=== PATIENT | female | born 1935 | race Caucasian/White ===

== ENCOUNTER 2016-09-20 11:02 | Inpatient (IN) | payer MEDICARE ==
[~2016-09-20] VITALS: Ht 170.2 cm; Wt 71.4 kg
[~2016-09-20 11:02] MED LIST: AMOX1TAB64 PO; AMOXICILLIN PO; ATEN50TA41 PO; CALC-138 PO; DIAZ5TAB PO; GLUC1CAP18 PO; HYDR25TA6 PO; LEVO100T5 PO; LEVO88TA4 PO; SIMV10TA3 PO; STOOL SOFTNER PO; TRAM50TA2 PO; VERAPAMIL PO; VITAMIN D PO; WARF4TAB7 PO; WARF6TAB7 PO
[2016-09-20] MEDS ORDERED: VERA80TA2 PO (12:11)
[2016-09-20] MEDS ORDERED: AMOX-291 PO (12:16)
[2016-09-20] MEDS ORDERED: GLUC1500 PO (12:17)
[2016-09-20] MEDS ORDERED: SODIUM CHLORIDE FLUSH 10ML SYR IVF PRN (14:00)
[2016-09-20] MEDS ORDERED: TEMPLATE NON-FORMULARY MED. (Warfarin Sodium** 4 MG) PO SCH (14:30)
[2016-09-20] MEDS ORDERED: ONDANSETRON 2MG/ML, 2ML IVP PRN (14:30)
[2016-09-20] MEDS ORDERED: GUAIFENESIN/DM 200-20MG, 10ML UDC PO PRN (14:30)
[2016-09-20] MEDS ORDERED: ENALAPRILAT 1.25 MG/ML, 2ML IVPush PRN (14:30)
[2016-09-20] MEDS ORDERED: ACETAMINOPHEN 325 MG TABLET PO PRN (14:30)
[2016-09-20] MEDS ORDERED: TEMPLATE NON-FORMULARY MED. (Warfarin Sodium** 2 MG) PO SCH (14:30)
[2016-09-20] MEDS ORDERED: DILTIAZEM 5 MG/ML, 5ML ONE ×2 (14:56→15:42)
[2016-09-20] MEDS ORDERED: DILTIAZEM 5 MG/ML, 5ML IVPush ONE ×3 (15:00→16:00)
[2016-09-20] MEDS ORDERED: OMNIPAQUE 350 MG/ML, 100ML BOTTLE ONE (15:23)
[2016-09-20] MEDS ORDERED: LORazepam 2 MG/ML, 1ML ONE (16:10)
[2016-09-20] MEDS ORDERED: LORazepam 2 MG/ML, 1ML IVPush ONE (16:30)
[2016-09-20 17:42] VITALS: BP 154/83
[2016-09-20] MEDS: PLEASE ENTER HEIGHT AND WEIGHT MC SCH ×2 (18:04→22:57)
[2016-09-20] MEDS: SODIUM CHLORIDE 0.9% 1,000 ML IV SCH (18:24)
[2016-09-20] MEDS ORDERED: LORazepam 2 MG/ML, 1ML IV PRN (18:30)
[2016-09-20] MEDS ORDERED: WARFARIN 2 MG TABLET PO-COUM ONE (19:00)
[2016-09-20 20:05] VITALS: BP 95/61
[2016-09-20] MEDS: AMOXICILLIN 500 MG CAPSULE PO SCH (21:14)
[2016-09-20] MEDS: FAMOTIDINE 20 MG TABLET PO SCH (21:14)
[2016-09-20] MEDS: ENOXAPARIN 60 MG/0.6 ML SQ SCH (21:14)
[2016-09-21 02:20] VITALS: BP 103/68
[2016-09-21] MEDS: SODIUM CHLORIDE 0.9% 1,000 ML IV SCH ×2 (04:51→14:02)
[2016-09-21] MEDS: PLEASE ENTER HEIGHT AND WEIGHT MC SCH ×2 (04:52→15:00)
[2016-09-21 05:33] LABS: BLOOD UREA NITROGEN 25 mg/dL (7-18)
[2016-09-21 07:11] VITALS: BP 101/61
[2016-09-21] MEDS: AMOXICILLIN 500 MG CAPSULE PO SCH ×2 (08:03→22:24)
[2016-09-21] MEDS: ENOXAPARIN 60 MG/0.6 ML SQ SCH ×2 (08:03→22:24)
[2016-09-21] MEDS: FAMOTIDINE 20 MG TABLET PO SCH ×2 (08:04→22:24)
[2016-09-21] MEDS: VERAPAMIL ER 240MG TABLET.ER PO SCH (08:05)
[2016-09-21] MEDS: SENNA/DOCUSATE TABLET PO SCH (08:10)
[2016-09-21] MEDS: DOCUSATE 100 MG CAPSULE PO SCH (08:11)
[2016-09-21] MEDS ORDERED: VERAPAMIL 80MG TABLET PO SCH (09:00)
[2016-09-21] MEDS ORDERED: LEVOTHYROXINE 88 MCG TABLET PO SCH (09:00)
[2016-09-21 13:42] VITALS: BP 95/60
[2016-09-21] MEDS ORDERED: WARFARIN 5 MG TABLET PO-COUM ONE (18:00)
[2016-09-21 19:12] VITALS: BP 100/69
[2016-09-22] MEDS: SODIUM CHLORIDE 0.9% 1,000 ML IV SCH ×2 (01:00→09:02)
[2016-09-22 01:26] VITALS: BP 115/70
[2016-09-22 05:42] LABS: BLOOD UREA NITROGEN 24 mg/dL (7-18)
[2016-09-22] MEDS ORDERED: LEVOTHYROXINE 50 MCG TABLET PO SCH (06:00)
[2016-09-22 07:11] VITALS: BP 128/77
[2016-09-22] MEDS: ENOXAPARIN 60 MG/0.6 ML SQ SCH ×2 (08:58→17:19)
[2016-09-22] MEDS: AMOXICILLIN 500 MG CAPSULE PO SCH (08:59)
[2016-09-22] MEDS: SENNA/DOCUSATE TABLET PO SCH (08:59)
[2016-09-22] MEDS: DOCUSATE 100 MG CAPSULE PO SCH (08:59)
[2016-09-22] MEDS: VERAPAMIL ER 240MG TABLET.ER PO SCH (08:59)
[2016-09-22] MEDS: FAMOTIDINE 20 MG TABLET PO SCH (08:59)
[2016-09-22] MEDS ORDERED: LEVO50TA PO (11:36)
[2016-09-22 15:15] VITALS: BP 115/70
[2016-09-22] MEDS ORDERED: WARFARIN 5 MG TABLET PO-COUM ONE (18:00)
== END 2016-09-22 17:37 | disposition home or self-care (01) | DRG 69 ==
LOC: ED 13:55 → EDIP 13:56 → ED 14:20 → 5SO 17:29
PROVIDERS: ADMIT Internal Medicine; ATTEND Internal Medicine
DX: I67.82 Cerebral ischemia (principal); D68.59 Other primary thrombophilia; I48.91 Unspecified atrial fibrillation; E05.90 Thyrotoxicosis, unspecified without thyrotoxic crisis or storm; G43.109 Migraine with aura, not intractable, without status migrainosus; E03.9 Hypothyroidism, unspecified; I10 Essential (primary) hypertension; I34.1 Nonrheumatic mitral (valve) prolapse; Z96.652 Presence of left artificial knee joint; I48.0 Paroxysmal atrial fibrillation; M19.90 Unspecified osteoarthritis, unspecified site; Z79.01 Long term (current) use of anticoagulants; Z82.3 Family history of stroke; Z88.6 Allergy status to analgesic agent; Z88.5 Allergy status to narcotic agent; Z88.8 Allergy status to other drugs, medicaments and biological substances; Z91.048 Other nonmedicinal substance allergy status; Z82.49 Family history of ischemic heart disease and other diseases of the circulatory system; Z84.89 Family history of other specified conditions
CPT/HCPCS: 36415; 70450; 70496; 70498; 70553; 80047; 80048; 80061; 82962; 83036; 84443; 85025; 85610; 85730; 93005; 93306; 96374; 96375; 96376; J1650; Q9967; J2060; J7030

== ENCOUNTER 2016-09-23 13:54 | Inpatient (IN) | payer MEDICARE ==
[~2016-09-23] VITALS: Ht 170.2 cm; Wt 69.2 kg
[~2016-09-23 13:54] MED LIST changes: +AMOX-291 PO; +GLUC1500 PO; +LEVO50TA PO; +VERA80TA2 PO
[2016-09-23] MEDS ORDERED: HYDROmorphone 1 MG/ML, 1ML IM ONE ×2 (15:00→16:30)
[2016-09-23] MEDS ORDERED: ONDANSETRON ODT 4 MG PO ONE ×2 (15:00→16:30)
[2016-09-23] MEDS ORDERED: ONDANSETRON ODT 4 MG ONE ×2 (15:18→16:31)
[2016-09-23] MEDS ORDERED: HYDROmorphone 1 MG/ML, 1ML ONE ×3 (15:18→18:35)
[2016-09-23 15:52] LABS: BLOOD UREA NITROGEN 19 mg/dL (7-18)
[2016-09-23] MEDS ORDERED: LORazepam 2 MG/ML, 1ML ONE (17:14)
[2016-09-23] MEDS ORDERED: LORazepam 2 MG/ML, 1ML IM ONE (17:30)
[2016-09-23] MEDS ORDERED: SODIUM CHLORIDE FLUSH 10ML SYR IVF ONE (18:30)
[2016-09-23] MEDS ORDERED: GABAPENTIN 300 MG CAPSULE PO ONE (19:00)
[2016-09-23] MEDS ORDERED: HYDROmorphone 1 MG/ML, 1ML IVPush PRN (19:00)
[2016-09-23] MEDS ORDERED: LABETALOL 5MG/ML, 20ML IV PRN (20:00)
[2016-09-23] MEDS ORDERED: DOCUSATE 100 MG CAPSULE PO PRN (20:00)
[2016-09-23] MEDS ORDERED: TRAZODONE 50MG TABLET PO PRN (20:00)
[2016-09-23] MEDS ORDERED: BISACODYL 10 MG SUPP PR PRN (20:00)
[2016-09-23] MEDS ORDERED: ONDANSETRON 2MG/ML, 2ML IVP PRN (20:00)
[2016-09-23] MEDS ORDERED: TEMPLATE NON-FORMULARY MED. (Glucosamine Hcl** 1,500 MG) PO SCH (21:00)
[2016-09-23] MEDS: ATORVASTATIN 40 MG TABLET PO SCH (21:00)
[2016-09-23 22:22] VITALS: BP 169/79
[2016-09-23] MEDS: SODIUM CHLORIDE 0.9% 1,000 ML IV SCH (22:54)
[2016-09-24 02:50] VITALS: BP 121/76
[2016-09-24] MEDS: LEVOTHYROXINE 50 MCG TABLET PO SCH (05:15)
[2016-09-24] MEDS: KETOROLAC 30 MG/1 ML IVPush PRN ×3 (05:31→17:42)
[2016-09-24 07:45] VITALS: BP 153/77
[2016-09-24] MEDS: SODIUM CHLORIDE 0.9% 1,000 ML IV SCH ×2 (09:00→18:27)
[2016-09-24] MEDS: HYDROCHLOROTHIAZIDE 25 MG TABLET PO SCH (10:18)
[2016-09-24] MEDS: VERAPAMIL ER 240MG TABLET.ER PO SCH (10:18)
[2016-09-24 10:19] VITALS: BP 147/69
[2016-09-24] MEDS: CALCIUM/VITAMIN D3 250-125 TABLET PO SCH (11:25)
[2016-09-24 12:28] VITALS: BP 150/81
[2016-09-24] MEDS: AMOXICILLIN 500 MG CAPSULE PO SCH ×2 (14:44→21:52)
[2016-09-24] MEDS: POLYETHYLENE GLYCOL 17 GM PACKET PO PRN (15:29)
[2016-09-24 20:23] VITALS: BP 133/58
[2016-09-24] MEDS: ATORVASTATIN 40 MG TABLET PO SCH (21:00)
[2016-09-25] MEDS: KETOROLAC 30 MG/1 ML IVPush PRN ×3 (02:03→14:06)
[2016-09-25 02:47] VITALS: BP 166/72
[2016-09-25] MEDS: LEVOTHYROXINE 50 MCG TABLET PO SCH (05:28)
[2016-09-25] MEDS: SODIUM CHLORIDE 0.9% 1,000 ML IV SCH ×2 (05:28→14:06)
[2016-09-25 05:57] LABS: BLOOD UREA NITROGEN 24 mg/dL (7-18)
[2016-09-25 07:53] VITALS: BP 151/77
[2016-09-25] MEDS ORDERED: MORPHINE SULFATE 4 MG/ML, 1ML IVPush ONE (10:00)
[2016-09-25] MEDS ORDERED: MORPHINE SULFATE 4 MG/ML, 1ML ONE (10:03)
[2016-09-25] MEDS: HYDROCHLOROTHIAZIDE 25 MG TABLET PO SCH (10:08)
[2016-09-25] MEDS: AMOXICILLIN 500 MG CAPSULE PO SCH ×2 (10:08→20:23)
[2016-09-25] MEDS: VERAPAMIL ER 240MG TABLET.ER PO SCH (10:08)
[2016-09-25 14:28] VITALS: BP 159/72
[2016-09-25] MEDS ORDERED: SODIUM BICARBONATE 4.2%, 5ML ONE (14:51)
[2016-09-25] MEDS ORDERED: LIDOCAINE 1%, 20ML ONE (14:51)
[2016-09-25] MEDS: CALCIUM/VITAMIN D3 250-125 TABLET PO SCH (16:05)
[2016-09-25] MEDS: MORPHINE SULFATE 4 MG/ML, 1ML IVPush PRN ×2 (16:05→22:16)
[2016-09-25 19:38] VITALS: BP 126/64
[2016-09-25] MEDS: ATORVASTATIN 40 MG TABLET PO SCH (20:23)
[2016-09-26] MEDS: SODIUM CHLORIDE 0.9% 1,000 ML IV SCH ×2 (00:14→08:52)
[2016-09-26 01:39] VITALS: BP 122/61
[2016-09-26 05:11] LABS: BLOOD UREA NITROGEN 20 mg/dL (7-18)
[2016-09-26 07:46] VITALS: BP 136/77
[2016-09-26] MEDS: CALCIUM/VITAMIN D3 250-125 TABLET PO SCH (07:56)
[2016-09-26] MEDS: HYDROCHLOROTHIAZIDE 25 MG TABLET PO SCH (07:56)
[2016-09-26] MEDS: AMOXICILLIN 500 MG CAPSULE PO SCH ×2 (07:57→21:01)
[2016-09-26] MEDS: LEVOTHYROXINE 50 MCG TABLET PO SCH (07:57)
[2016-09-26] MEDS: VERAPAMIL ER 240MG TABLET.ER PO SCH (07:57)
[2016-09-26] MEDS: POLYETHYLENE GLYCOL 17 GM PACKET PO PRN (08:01)
[2016-09-26] MEDS: KETOROLAC 30 MG/1 ML IVPush PRN ×2 (08:52→19:19)
[2016-09-26 15:14] VITALS: BP 121/73
[2016-09-26 19:08] VITALS: BP 157/84
[2016-09-26] MEDS: ATORVASTATIN 40 MG TABLET PO SCH (21:00)
[2016-09-27 01:22] VITALS: BP 110/57
[2016-09-27] MEDS: KETOROLAC 30 MG/1 ML IVPush PRN (03:11)
[2016-09-27] MEDS: LEVOTHYROXINE 50 MCG TABLET PO SCH (05:19)
[2016-09-27 07:27] VITALS: BP 115/69
[2016-09-27] MEDS: VERAPAMIL ER 240MG TABLET.ER PO SCH (08:27)
[2016-09-27] MEDS: POLYETHYLENE GLYCOL 17 GM PACKET PO PRN (08:27)
[2016-09-27] MEDS: HYDROCHLOROTHIAZIDE 25 MG TABLET PO SCH (08:27)
[2016-09-27] MEDS: CALCIUM/VITAMIN D3 250-125 TABLET PO SCH (08:27)
[2016-09-27] MEDS: AMOXICILLIN 500 MG CAPSULE PO SCH ×2 (08:27→20:53)
[2016-09-27] MEDS ORDERED: ONDANSETRON ODT 4 MG PO PRN (10:00)
[2016-09-27] MEDS ORDERED: KETOROLAC 30 MG/1 ML IM PRN (10:00)
[2016-09-27 14:48] VITALS: BP 101/60
[2016-09-27 19:29] VITALS: BP 112/68
[2016-09-27] MEDS: ATORVASTATIN 40 MG TABLET PO SCH (20:53)
[2016-09-28 01:21] VITALS: BP 125/69
[2016-09-28] MEDS: LEVOTHYROXINE 50 MCG TABLET PO SCH (05:10)
[2016-09-28 07:52] VITALS: BP 105/72
[2016-09-28] MEDS: HYDROCHLOROTHIAZIDE 25 MG TABLET PO SCH (09:00)
[2016-09-28] MEDS: AMOXICILLIN 500 MG CAPSULE PO SCH (09:00)
[2016-09-28] MEDS: VERAPAMIL ER 240MG TABLET.ER PO SCH (09:00)
[2016-09-28] MEDS: POLYETHYLENE GLYCOL 17 GM PACKET PO PRN (09:00)
[2016-09-28] MEDS ORDERED: ATOR40TA78 PO (10:48)
== END 2016-09-28 15:05 | disposition home health service (06) | DRG 605 ==
LOC: ED 18:53 → EDIP 19:49 → 3NW 21:25 → OBSVTOIN 09-24 14:11
PROVIDERS: ADMIT Internal Medicine; ATTEND Internal Medicine
DX: S50.11XA Contusion of right forearm, initial encounter (principal); D68.69 Other thrombophilia; N17.9 Acute kidney failure, unspecified; E03.9 Hypothyroidism, unspecified; E88.09 Other disorders of plasma-protein metabolism, not elsewhere classified; I12.9 Hypertensive chronic kidney disease with stage 1 through stage 4 chronic kidney disease, or unspecified chronic kidney disease; M19.90 Unspecified osteoarthritis, unspecified site; N18.3 Chronic kidney disease, stage 3 (moderate); Z96.642 Presence of left artificial hip joint; X58.XXXA Exposure to other specified factors, initial encounter; Z96.652 Presence of left artificial knee joint; I48.0 Paroxysmal atrial fibrillation; Z90.710 Acquired absence of both cervix and uterus; Z88.1 Allergy status to other antibiotic agents; Z88.5 Allergy status to narcotic agent; Z88.6 Allergy status to analgesic agent; Z88.8 Allergy status to other drugs, medicaments and biological substances; Y93.89 Activity, other specified; Y92.89 Other specified places as the place of occurrence of the external cause; Z82.3 Family history of stroke; Z86.73 Personal history of transient ischemic attack (TIA), and cerebral infarction without residual deficits; Z95.2 Presence of prosthetic heart valve; Y99.8 Other external cause status; Z98.51 Tubal ligation status; T45.515A Adverse effect of anticoagulants, initial encounter
CPT/HCPCS: 10160; 36415; 76942; 80048; 82040; 85025; 85610; 85730; 96372; 96374; 96375; G0378; J1170; J1885; J2405; J3490; Q0162; J2060; J7030

== ENCOUNTER 2017-04-06 13:10 | Inpatient (IN) | payer MEDICARE ==
[~2017-04-06] VITALS: Ht 170.2 cm; Wt 64.2 kg
[~2017-04-06 13:10] MED LIST changes: +ATOR40TA78 PO
[2017-04-06 13:40] LABS: HEMATOCRIT 42.3 % (34.6-47.8); HEMOGLOBIN 14.3 g/dL (11.7-16.4); WHITE BLOOD COUNT 6.7 x10^3/uL (3.4-10)
[2017-04-06] MEDS ORDERED: FENTANYL PF 100 MCG/2ML IV ONE (14:00)
[2017-04-06] MEDS ORDERED: CLOPIDOGREL 75 MG TABLET PO ONE (15:00)
[2017-04-06] MEDS ORDERED: ALTEPLASE 1 MG/ML ONE (15:19)
[2017-04-06] MEDS ORDERED: ALTEPLASE IV ONE ×2 (15:30)
[2017-04-06] MEDS ORDERED: LEVO88TA2 PO (16:06)
[2017-04-06] MEDS ORDERED: verapamil PO (16:06)
[2017-04-06] MEDS ORDERED: miralax PO (16:06)
[2017-04-06] MEDS ORDERED: glucosamine PO (16:06)
[2017-04-06] MEDS ORDERED: vitamin D PO (16:06)
[2017-04-06] MEDS ORDERED: calcium PO (16:06)
[2017-04-06] MEDS ORDERED: ONDANSETRON 2MG/ML, 2ML ONE (16:08)
[2017-04-06] MEDS ORDERED: OMNIPAQUE 350 MG/ML, 100ML BOTTLE ONE (16:25)
[2017-04-06] MEDS ORDERED: ONDANSETRON 2MG/ML, 2ML IVPush PRN (16:30)
[2017-04-06] MEDS ORDERED: LABETALOL 5MG/ML, 20ML IVPush PRN (16:30)
[2017-04-06] MEDS ORDERED: POLYETHYLENE GLYCOL 17 GM PACKET PO PRN (16:30)
[2017-04-06] MEDS: NS + 20MEQ KCL 1,000 ML IV SCH (17:30)
[2017-04-06] MEDS: ACETAMINOPHEN 325 MG TABLET PO PRN (20:16)
[2017-04-07 04:00] VITALS: BP 120/50
[2017-04-07] MEDS: LEVOTHYROXINE 50 MCG TABLET PO SCH (05:08)
[2017-04-07] MEDS: NS + 20MEQ KCL 1,000 ML IV SCH (05:08)
[2017-04-07 08:52] LABS: ASPARTATE AMINO TRANSFERASE 17 U/L (15-37); BLOOD UREA NITROGEN 22 mg/dL (7-18)
[2017-04-07] MEDS: SENNA/DOCUSATE TABLET PO SCH (09:00)
[2017-04-07 09:01] LABS: HEMATOCRIT 36.9 % (34.6-47.8); HEMOGLOBIN 12.6 g/dL (11.7-16.4); WHITE BLOOD COUNT 5.9 x10^3/uL (3.4-10)
[2017-04-07] MEDS ORDERED: GADOBUTROL 7.5 MMOL/7.5 ML PFS ONE (10:55)
[2017-04-07 15:57] VITALS: BP 123/71
[2017-04-07 20:00] VITALS: BP 120/70
[2017-04-08 01:38] VITALS: BP 95/58
[2017-04-08] MEDS: LEVOTHYROXINE 50 MCG TABLET PO SCH (05:28)
[2017-04-08] MEDS: ACETAMINOPHEN 325 MG TABLET PO PRN (07:56)
[2017-04-08 08:26] VITALS: BP 128/77
[2017-04-08] MEDS: SENNA/DOCUSATE TABLET PO SCH (09:00)
[2017-04-08 12:04] VITALS: BP 125/68
[2017-04-08] MEDS ORDERED: CLOP75TA52 PO (12:56)
== END 2017-04-08 15:56 | disposition home or self-care (01) | DRG 61 ==
LOC: ED 16:01 → EDIP 16:02 → ED 16:13 → CCU 17:02 → 4WST 04-07 15:50 → DCLOUNGE 04-08 15:29
PROVIDERS: ADMIT Internal Medicine; ATTEND Internal Medicine
DX: I63.9 Cerebral infarction, unspecified (principal); E43 Unspecified severe protein-calorie malnutrition; I48.91 Unspecified atrial fibrillation; I34.1 Nonrheumatic mitral (valve) prolapse; I44.4 Left anterior fascicular block; E03.9 Hypothyroidism, unspecified; E78.5 Hyperlipidemia, unspecified; E87.6 Hypokalemia; R47.01 Aphasia; I10 Essential (primary) hypertension; Z88.6 Allergy status to analgesic agent; Z88.8 Allergy status to other drugs, medicaments and biological substances; M19.90 Unspecified osteoarthritis, unspecified site; Z82.3 Family history of stroke; Z82.49 Family history of ischemic heart disease and other diseases of the circulatory system; Z98.51 Tubal ligation status; Z90.710 Acquired absence of both cervix and uterus
CPT/HCPCS: 36415; 51702; 70450; 70496; 70498; 70553; 80047; 80053; 82962; 85025; 85610; 85730; 87081; 93005; 93306; 96374; A9585; J2405; J2997; J3480; Q9967; 92523-GN

== ENCOUNTER 2018-01-18 09:44 | Emergency (ER) | payer MEDICARE ==
[~2018-01-18] VITALS: Ht 170.2 cm; Wt 62.3 kg
[~2018-01-18 09:44] MED LIST changes: +CLOP75TA52 PO; -GLUC1500 PO; +GLUC15006 PO; +LEVO88TA2 PO; +WARF4TAB65 PO; -WARF4TAB7 PO; +WARF6TAB47 PO; -WARF6TAB7 PO; +calcium PO; +glucosamine PO; +miralax PO; +verapamil PO; +vitamin D PO
[2018-01-18] MEDS ORDERED: SODIUM CHLORIDE 0.9% 1,000ML IVBOLUS ONE (10:30)
[2018-01-18] MEDS ORDERED: SODIUM CHLORIDE FLUSH 10ML SYR IVF ONE (10:30)
[2018-01-18 10:41] LABS: BASOPHILS # (AUTO) 0.02 x10^3/uL (0-0.1); BASOPHILS % (AUTO) 1 % (0-1); EOSINOPHILS # (AUTO) 0.08 x10^3/uL (0-0.4); EOSINOPHILS % (AUTO) 2 % (1-7); LYMPHOCYTES # (AUTO) 0.99 x10^3/uL (1-3.4); LYMPHOCYTES % (AUTO) 26 % (22-44); MD NO; MEAN CORPUSCULAR HEMOGLOBIN 32.3 pg (27.0-34.8); MEAN CORPUSCULAR VOLUME 94.9 fL (80-100); MEAN PLATELET VOLUME 7.3 fL (7.4-10.4); MONOCYTES # (AUTO) 0.31 x10^3/uL (0.2-0.8); MONOCYTES % (AUTO) 8 % (2-9); NEUTROPHILS # (AUTO) 2.35 x10^3/uL (1.8-6.8); NEUTROPHILS % (AUTO) 63 % (42-75); PLATELET COUNT 342 x10^3/uL (130-400); RED BLOOD COUNT 3.99 x10^6/uL (3.82-5.3); RED CELL DISTRIBUTION WIDTH 12.9 % (9.6-15.2)
[2018-01-18 10:52] LABS: INTERNATIONAL NORMALIZED RATIO 1.12 (0.93-1.1); PROTHROMBIN TIME 11.5 Seconds (9.6-11.5)
[2018-01-18 10:54] LABS: ALANINE AMINOTRANSFERASE 25 U/L (12-78); ANION GAP 9 mmol/L (5-15); CALCIUM 9.3 mg/dL (8.5-10.1); CHLORIDE 107 mmol/L (98-107); CREATININE 1.35 mg/dL (0.55-1.02)
[2018-01-18 10:56] LABS: ALKALINE PHOSPHATASE 84 U/L (45-117); BILIRUBIN,TOTAL 0.6 mg/dL (0.2-1.0); TOTAL PROTEIN 7.1 g/dL (6.4-8.2)
[2018-01-18] MEDS ORDERED: LEVO50TA5 PO (11:55)
[2018-01-18] MEDS ORDERED: AMOX-291 PO (11:55)
[2018-01-18] MEDS ORDERED: RIVA20TA PO (11:55)
[2018-01-18] MEDS ORDERED: OMNIPAQUE 350 MG/ML, 100ML BOTTLE ONE (12:19)
[2018-01-18 13:19] LABS: MICROSCOPIC AUTO
[2018-01-18 13:21] LABS: CULTURE INDICATED? NO
[2018-01-18 13:30] VITALS: BP 150/67
== END 2018-01-18 14:10 | disposition home or self-care (01) ==
LOC: ED 11:13
DX: K92.1 Melena (principal); K59.00 Constipation, unspecified; Z79.01 Long term (current) use of anticoagulants; I10 Essential (primary) hypertension; E78.5 Hyperlipidemia, unspecified; I48.91 Unspecified atrial fibrillation; I34.1 Nonrheumatic mitral (valve) prolapse; Z86.73 Personal history of transient ischemic attack (TIA), and cerebral infarction without residual deficits
CPT/HCPCS: 36415; 74177; 80053; 81001; 83605; 85025; 85610; 85730; 86850; 86900; 93005; 99285; J7030; Q9967

== ENCOUNTER → 2019-05-10 | Outpatient (CLI) | payer MEDICARE ==
[~2019-05-10] MED LIST changes: +LEVO50TA5 PO; +RIVA20TA PO
== END | disposition home or self-care (01) ==
LOC: CFH 10:52
PROVIDERS: ATTEND Psychiatry & Neurology Neurology
CPT/HCPCS: 93880